=== PATIENT | female | born 1955 | race Caucasian/White ===

== ENCOUNTER 2018-06-21 21:17 | Emergency (ER) | payer OTHER ==
[~2018-06-21] VITALS: Ht 160 cm; Wt 129.0 kg
[2018-06-21 21:26] VITALS: Ht 160 cm; Wt 129.0 kg
[2018-06-21] MEDS ORDERED: NAPROXEN 500 MG TAB PO ONE (23:00)
--- NOTE | 2018-06-21 23:03 | ERD ---
ER Documentation Chief Complaint Chief Complaint L flank pain that started today HPI 62 year old female with chronic back pain on Micro presenting with complaints of left mid back pain. She was trying to tie her shoe while standing and lost her balance. She did not fall, but tried to maintain her balance and subsequently pulled something in her back. She complains of left sided aching back pain, radiating to her left lateral flank, 7/10,worse with certain movements, improved with staying still. She did take Micro and smoke marijuana to help with pain prior to arrival. No associated numbness or tingling in extremities or back. No new weaknness. ROS All systems reviewed and are negative except as per history of present illness. 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 No meningismus. no C spine TTP Resp: Clear to auscultation bilaterally Cardio: Regular rate and rhythm, no murmurs Abd: Soft, non tender, non distended. Back: No midline or flank tenderness. Thoracic paraspinal muscle tenderness in mid back on left side. Ext: No cyanosis, or edema Neur: Awake and alert, 5/5 strength in BUE and BLE. Sensations grossly intact. Antalgic gait Psych: Normal Mood and Affect Results 24 hrs Current Medications Medications Dose Sig/[place] Start Time Status Last (Trade) Ordered Route PRN Stop Time Admin Dose Reason Admin Naproxen 500 mg ONCE ONCE 06/21/18 (Naprosyn) PO 23:00 06/21/18 23:01 Procedures/MDM Patient is presenting with acute left-sided back pain, likely secondary to muscle strain. I do not suspect spinal emergency. I offered her Aleve for her pain. She already has Micro at home for her chronic back pain. She is neurovascularly intact. Recommended ice packs to the area that hurts and some rest for the first 2 days. Then she could put warm packs on her back. Follow- up with PCP was recommended. Patient's blood pressure was elevated (>120/80) but appears stable without evidence of hypertension emergency or urgency. The patient was counseled about the risks of hypertension and urged to pursue outpatient monitoring and therapy within a week with their primary care physician. Departure Diagnosis: Primary Impression: Acute left-sided thoracic back pain Additional Impression: Muscle strain Condition: Stable EKKAYCEE OHARA MD Jun 21, 2018 23:03
[2018-06-21 23:04] VITALS: BP 108/86; PULSE 101; RESP 22
[2018-06-21] MEDS ORDERED: NAPR-985 PO (23:06)
[2018-06-24] MEDS ORDERED: NAPR-985 PO (09:03)
== END 2018-06-21 23:42 | disposition home or self-care (01) ==
LOC: E/R 21:17
DX: S29.012A Strain of muscle and tendon of back wall of thorax, initial encounter (principal); I10 Essential (primary) hypertension; X50.0XXA Overexertion from strenuous movement or load, initial encounter; Y92.9 Unspecified place or not applicable; Z85.71 Personal history of Hodgkin lymphoma
CPT/HCPCS: 99282